=== PATIENT | female | born 1945 | race Caucasian/White ===

== ENCOUNTER → 2018-08-09 | Outpatient (CLI) | payer MEDICARE ==
[~2018-08-09] MED LIST: BENADRYL25 M1 PO; LEVOTHYROXINE50 MCG PO; LEXAPRO10 MG PO; LISINOPRIL10 MG PO; METOPROLOL SUCC25 MG PO; SIMVASTATIN40 MG PO; TRIAMTERENE-HCTZ1 EA PO; TYLENOL WITH C1 EACH PO
== END ==
LOC: MAMMO 08:47
DX: Z12.31 Encounter for screening mammogram for malignant neoplasm of breast (principal)
CPT/HCPCS: 77067

== ENCOUNTER 2022-06-25 22:35 | Emergency (ER) | payer MEDICARE, OTHER ==
[~2022-06-25] VITALS: Ht 165.1 cm; Wt 93.9 kg
[2022-06-25] MEDS ORDERED: TETANUS/DIPHTHERIA TOX ADULT 0.5 ML SYR IM ONE (23:00)
[2022-06-26] MEDS ORDERED: TRAMADOL HCL 50 MG TAB PO ONE (00:45)
[2022-06-26] MEDS ORDERED: TRAMADOL HCL 50 MG TAB ONE (01:00)
[2022-06-26] MEDS ORDERED: ULTRAM 50MG50 MG PO (02:15)
[2022-06-26] MEDS ORDERED: KETOROLAC TROMETHAMINE 60 MG/2 ML VIAL IM ONE (02:15)
[2022-06-26] MEDS ORDERED: KETOROLAC TROMETHAMINE 30 MG/ML VIAL ONE (02:24)
== END 2022-06-26 02:25 | disposition home or self-care (01) ==
LOC: ER 22:38
DX: S52.592A Other fractures of lower end of left radius, initial encounter for closed fracture (principal); W01.0XXA Fall on same level from slipping, tripping and stumbling without subsequent striking against object, initial encounter; Y92.89 Other specified places as the place of occurrence of the external cause
CPT/HCPCS: 29125; 73110; 90471; 90714; 99283; J1885

== ENCOUNTER → 2024-12-20 | Outpatient (REF) | payer MEDICARE ==
[~2024-12-20] MED LIST changes: +ULTRAM 50MG50 MG PO
== END ==
LOC: MAMMO 11-21 12:28
PROVIDERS: ATTEND Family Medicine Adult Medicine
DX: R92.30 Dense breasts, unspecified (principal)
CPT/HCPCS: 77066